=== PATIENT | male | born 1980 | race Caucasian/White ===

== ENCOUNTER 2018-12-29 16:52 | Emergency (ER) | payer OTHER ==
--- NOTE | 2018-12-29 19:27 | XRAY Report ---
Reason: L foot pain Procedure Date: 12/29/2018 Accession Number: [id number] / [id number] Procedure: XR - Foot 3 View LT CPT Code: FULL RESULT: EXAM: LEFT FOOT RADIOGRAPHY EXAM DATE: 12/29/2018 06:56 PM. CLINICAL HISTORY: L foot pain. COMPARISON: None. TECHNIQUE: 3 views. FINDINGS: Bones: Normal. No fractures or bone lesions. Joints: Normal. No subluxations. Soft Tissues: Normal. No soft tissue swelling. IMPRESSION: Normal foot radiography. [facility]
--- NOTE | 2018-12-29 19:41 | ED Physician Documentation ---
History of Present Illness - Stated complaint Stated Complaint: LT FOOT INJ - Chief complaint Chief Complaint: Ext Problem - Additonal information Additional information: This is a 38-year-old male who presents with left foot pain. A horse stepped on his left dorsal foot earlier this afternoon, and since then patient has had pain and swelling on the left dorsal foot. He has been able to walk on it but he states that it is quite painful. He denies any weakness or numbness or tingling. The pain radiates somewhat up towards his ankle and his lower leg. Review of Systems Musculoskeletal: reports: Extremity pain Neurologic: denies: Numbness PD PAST MEDICAL HISTORY - Past Medical History Past Medical History: No Cardiovascular: None Respiratory: None Neuro: None Endocrine/Autoimmune: None GI: None : None HEENT: None Psych: None Musculoskeletal: None Derm: None - Past Surgical History Past Surgical History: No - Allergies Allergies/Adverse Reactions: Allergies Allergy/AdvReac Type Severity Reaction Status Date / Time No Known Drug Allergies Allergy Verified 12/29/18 17:16 - Social History Does the pt smoke?: No Smoking Status: Never smoker Does the pt drink ETOH?: Yes Does the pt have substance abuse?: No - Immunizations Immunizations are current?: Yes - POLST Patient has POLST: No PD ED PE NORMAL - General General: Alert and oriented X 3 - HEENT HEENT: Atraumatic - Cardiac Cardiac: Strong equal pulses - Respiratory Respiratory: No respiratory distress - Extremities Extremities: Other (Over the left lateral dorsal midfoot there is tenderness palpation and swelling, as well as a small amount of ecchymosis. Patient able to wiggle his toes, and flex and extend his ankle with some pain. Distal capillary refill is brisk, sensation light touch is intact.) - Neuro Neuro: Alert and oriented X 3 Results - Vitals Vitals: Vital Signs - 24 hr 12/29/18 12/29/18 12/29/18 17:16 19:48 19:54 Temperature 36.9 C Heart Rate 72 81 Respiratory 16 16 17 Rate Blood Pressure 136/87 H 137/96 H O2 Saturation 99 99 Oxygen O2 Source Room air - Rads (name of study) XR foot Radiology: Other (No acute fracture or dislocation) PD MEDICAL DECISION MAKING - ED course Complexity details: considered differential (frature, dislocation, contusion) ED course: Patient has a neurovascularly intact foot, x-rays are negative for acute fracture or dislocation. I discussed with him that there is a risk for occult fracture, and he should have a repeat x-ray in 1 week if he has any worsening or not improving symptoms. He is provided with crutches to be used until he is a ble to walk normally on the foot without significant pain. I discussed pain control with ice, ibuprofen, Tylenol. Patient was discharged home. Departure - Departure Disposition: 01 Home, Self Care Clinical Impression: Foot pain, left Condition: Good Follow-Up: Your,PCP [Other] - Within 1 week Comments: You were seen today for pain in your foot where you were impacted by a horse. Your x-ray does not show signs of fracture at this time, but sometimes fractures are not obvious on x-ray immediately. If you are having non-improving pain in 1 week, you should have a repeat x-ray. If you are having significant pain with walking, please use the crutches. If you develop worsening symptoms please return to the emergency department. He may use ibuprofen 600 mg every 6 hours as needed for pain, and Tylenol 650 mg every 6 hours as needed for pain. Ice and elevate your foot especially over the next 48 hours. Discharge Date/Time: 12/29/18 20:16
[2018-12-29 19:55] VITALS: BP 137/96
== END 2018-12-29 20:16 | disposition home or self-care (01) ==
LOC: ED 16:52
DX: S90.32XA Contusion of left foot, initial encounter (principal); W55.19XA Other contact with horse, initial encounter
CPT/HCPCS: 99282; 99283